=== PATIENT | male | born 2000 | race Caucasian/White ===

== ENCOUNTER 2024-05-16 18:28 | Emergency (ER) | payer BC, SELFPAY ==
[2024-05-16 18:30] VITALS: BP 121/86
[2024-05-16 18:52] LABS: Urine Albumin Negative (Neg - Trace); Urine Bilirubin Negative (Negative); Urine Character Clear (Clear); Urine Color Yellow; Urine Glucose Negative (Negative); Urine Ketone 2+ (Negative); Urine Leukocyte Negative (Negative); Urine Nitrite Negative (Negative); Urine Occult Blood 2+ (Negative); Urine Specific Gravity 1.015 (<1.030); Urine Urobilinogen Negative (Neg - 1+)
[2024-05-16 19:00] LABS: Urine Bacteria Many (Negative); Urine Squamous Cell 0-2 /LPF (Few); Urine White Cell 0-2 /HPF (0-5)
[2024-05-16 19:01] LABS: % Basophils 0.4 % (0-2); % Eosinophils 0.5 % (0-6); % Immature Granulocytes 0.3 % (0-0.5); % Lymphocytes 18.9 % (20.5-51.1); % Neutrophils 74.9 % (42.2-75.2); Absolute Basophils 0.1 10^3/uL (0-0.2); Absolute Eosinophils 0.1 10^3/uL (0-0.7); Absolute Lymphocytes 2.2 10^3/uL (1.2-3.4); Absolute Monocytes 0.6 10^3/uL (0.1-0.6); Absolute Neutrophils 8.7 10^3/uL (1.4-6.5); Hematocrit 47.4 % (39.0-52.0); Hemoglobin 16.5 g/dL (13.0-18.0); Mean Corp Hgb Conc. 34.8 g/dL (33.0-37.0); Mean Corpuscular Hgb 29.3 pg (27.0-31.0); Mean Platelet Volume 9.1 fL (7.4-10.4); Nucleated Red Blood Cells % 0 % (-); Platelet Count 301 10^3/uL (130-400); Red Blood Cell Count 5.64 10^6/uL (4.70-6.10); Red Cell Dist. Width 12.6 % (11.5-14.5); White Blood Cell Count 11.7 10^3/uL (4.8-10.8)
[2024-05-16 19:09] LABS: ALT (SGPT) 25 U/L (0-50); AST (SGOT) 31 U/L (17-59); Albumin 5.4 g/dl (3.5-5.0); Alkaline Phosphatase 67 U/L (38-126); Blood Urea Nitrogen 17 mg/dl (9-20); Calcium 10.5 mg/dl (8.4-10.2); Carbon Dioxide 28 mmol/L (22-30); Chloride 103 mmol/L (98-107); Glucose 97 mg/dl (70-99); Potassium 4.8 mmol/L (3.5-5.1); Sodium 142 mmol/L (135-145); Total Bilirubin 1.4 mg/dl (0.2-1.3); Total Protein 8.2 g/dl (6.3-8.2); eGFR > 60.00
[2024-05-16 19:10] LABS: Lipase 64 U/L (23-300)
--- NOTE | 2024-05-16 19:56 | ED.GENMED ---
History of Present Illness
General
Chief Complaint: Abdominal Pain
Time Seen by Provider: 05/16/24 19:56
History of Present Illness
History of Present Illness:
HPI: The patient presents with left testicular pain. This started earlier today while he was working in [place]. 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 He went to [place] but the wait was long so he came in here. While he was at
[place] the pain was rather severe. Currently he is somewhat improved. He did take Tylenol earlier in the day. He denies any urinary symptoms.
EXAM:
GENERAL: Well appearing in no distress
HEENT: Moist oral mucosa
CARDIOVASCULAR: No murmurs, normal heart rate, regular rhythm, No chest wall tenderness
PULMONARY: No respiratory distress, breath sounds are clear and equal
ABDOMEN: Soft with no peritoneal signs, no tenderness
: No testicular tenderness, normal cremasteric reflex
NEUROLOGIC: Excellent strength all extremities, no coordination deficits
PSYCHIATRIC: Appropriate mental status, normal insight and judgement
EXTREMITIES: Nontender, no edema, moves all extremities equally
SKIN: No rash, no lesions
TIME OF INITIAL ENCOUNTER: 7:50 PM
NUMBER AND COMPLEXITY OF PROBLEMS ADDRESSED AT THE ENCOUNTER
� Chronic conditions affecting care: No significant past medical history
� Acute Exacerbation and/or Progression of Chronic Illness: This is an acute problem
� Differential Diagnosis includes: Testicular torsion, UTI, pyelonephritis, hydrocele/varicocele, epididymitis
AMOUNT AND/OR COMPLEXITY OF DATA TO BE REVIEWED AND ANALYZED
� I performed an independent evaluation of and my interpretation is:
EKG:
CT:
X-rays:
Laboratory Studies: White count 11.7, hemoglobin normal, chemistries unremarkable however total bili is minimally elevated at 1.4 otherwise with normal transaminases, urinalysis does show some ketones and occult blood however no
clear evidence of infection based on number of white cells
Other: Ultrasound imaging of the scrotum shows no acute abnormality
� Review of other/old records: No old records available for review in [facility]
� Clinical information was obtained by an independent historian: I spoke to the mother at bedside
� Prescriptions/Medications Considered but not given:
� Further testing considered but not performed: Considered CT imaging of the abdomen pelvis however the patient has no significant abdominal tenderness and on reassessment has no further pain.
RISK OF COMPLICATIONS AND/OR MORBIDITY OR MORTALITY OF PATIENT MANAGEMENT
� Social determinants of health affecting care: Lives at home, works as an electrician master
� Discussion with other providers:
� Escalation of care including admission/observation vs risk of discharge considered: The patient did have Tylenol earlier and currently does appear rather comfortable. He has no significant abdominal tenderness and no
significant testicular tenderness. Ultrasound imaging unremarkable. On reassessment at 9 PM, the patient has no pain.
Phy Exam
Physical Exam
Physical Exam:
See HPI
Course
Orders/Labs/Results
Orders:
Orders
05/16/24 18:35
US Scrotum Urgent
Comment:
Reason For Exam: pain
05/16/24 18:41
Complete Blood Count/With Diff Urgent
Comprehensive Metabolic Panel Urgent
Lipase Urgent
Urinalysis Reflex To Culture Urgent
Date Specimen was Collected: 05/16/24
Time Specimen was Collected: 18:34
Urine Microscopic Reflex Cult Urgent
Urine Culture Urgent
JESUS Source: U
Specimen Description:
Date Specimen was Collected: 05/16/24
Time Specimen was Collected: 18:34
Abnormal Lab Results
05/16/24
18:41
WBC 11.7 H 10^3/uL
(4.8-10.8)
Absolute Neuts (auto) 8.7 H 10^3/uL
(1.4-6.5)
Lymphocytes % 18.9 L %
(20.5-51.1)
Calcium 10.5 H mg/dl
(8.4-10.2)
Total Bilirubin 1.4 H mg/dl
(0.2-1.3)
Albumin 5.4 H g/dl
(3.5-5.0)
Urine Ketones 2+ A
(Negative)
Ur Occult Blood Reflex 2+ A
(Negative)
Urine RBC 3-6 A /HPF
(0-2)
Urine Bacteria (Reflex) Many A
(Negative)
05/16/24 18:41
05/16/24 18:41
Vital Signs
Initial and Last Documented VS:
Initial Vital Signs
Temp Pulse Resp BP Pulse Ox
98.7 F 64 16 121/86 98
05/16/24 18:30 05/16/24 18:30 05/16/24 18:30 05/16/24 18:30 05/16/24 18:30
Last Documented Vital Signs
Temp Pulse Resp BP Pulse Ox
98.7 F 64 16 121/86 98
05/16/24 18:30 05/16/24 18:30 05/16/24 18:30 05/16/24 18:30 05/16/24 18:30
*Critical Care Note
Total Time (30-74mins, 75-104mins- exclusive of procedures): Not Applicable
ED Attending Note
-
Portions of this chart may have been created with voice recognition software.� Occasional wrong word or��sound alike� substitutions may have occurred due to the inherent limitations of voice recognition software.
Discharge Plan
Departure
Patient Disposition: Home (Routine Discharge)
Date of Disposition: 05/16/24
Time of Disposition: 21:06
Patient with high blood pressure during this ER visit?: Yes
Discharge Problem:
Testicular pain, left
Instructions: Abdominal Pain
Referrals:
Tenthoff,Tila Oconnor MD [Family Provider] -
Activity Restrictions/Additional Instructions:
Your white blood cell count is slightly elevated 11.7, total bilirubin level is minimally elevated at 1.4 but other liver function tests are normal. Kidney function is normal. Urinalysis does not show sign of infection but does show a small amount
of blood. It is possible you may have had a kidney stone. Ultrasound imaging shows no abnormality and shows normal blood flow to the testicles. Please follow-up with your primary care doctor. I recommend 3-4 [id number] ibuprofen (Motrin)
every 8 hours with food for a few days. Return here if worse.
Interventions
Interventions:
*Risk Screen - Suicide Last Done: 05/16/24 20:31
*General Assessment Last Done: 05/16/24 18:30
*Neglect/Abuse Screening Last Done: 05/16/24 20:31
ED- Fall Risk Assessment Last Done: 05/16/24 20:31
*ED COVID-19 Vaccine History Last Done: 05/16/24 18:30
GG-Iiuhqi-Vytkfxwebn Assessment Last Done: 05/16/24 20:31
Discharge Date and Time
Print Language: SCOTTISH
== END 2024-05-16 21:22 | disposition home or self-care (01) ==
LOC: EMR 18:28
PROVIDERS: Emergency Medicine; EMERGENCY PHYSICIAN Emergency Medicine; FAMILY PHYSICIAN Family Medicine
DX: N50.812 Left testicular pain (principal); R10.32 Left lower quadrant pain
CPT/HCPCS: 99284; 76870; 80053; 81003; 81015; 83690; 85025; 87086; 93976